=== PATIENT | female | born 1950 | race Caucasian/White ===

== ENCOUNTER → 2018-06-16 | Outpatient (CLI) | payer OTHER ==
[~2018-06-16] VITALS: Ht 165.1 cm; Wt 99.8 kg
[~2018-06-16] MED LIST: ALEVE220 M2 PO; ALLERGY RELIE15.8 ML BOTH NARES; AUGMENTIN875 MG PO; CHOLESTEROL PO; CYANOCOBALAM1000 MCG PO; GLUCOSAMINE CH1 EAC4 PO; GLUCOTROL10 MG PO; LEVOTHYROXINE SODIUM PO; LIPITOR80 MG PO; LISINOPRIL PO; LO-DOSE ASPIRIN81 M1 PO; METFORMIN HCL1000 MG PO; NEXIUM40 MG PO; PATADAY2.5 ML BOTH EYES; PRILOSEC40 MG PO; SYNTHROID125 MCG PO; ZESTRIL20 MG PO
== END | disposition home or self-care (01) ==
LOC: AMB 09:30
PROVIDERS: Internal Medicine Gastroenterology
PROC: 0DJD8ZZ Inspection of Lower Intestinal Tract, Via Natural or Artificial Opening Endoscopic (ICD-10-PCS; principal; 2018-06-16)
DX: Z12.11 Encounter for screening for malignant neoplasm of colon (principal); Z86.010 Personal history of colon polyps; K58.0 Irritable bowel syndrome with diarrhea; Z80.0 Family history of malignant neoplasm of digestive organs; I10 Essential (primary) hypertension; K76.0 Fatty (change of) liver, not elsewhere classified; K21.9 Gastro-esophageal reflux disease without esophagitis; M19.90 Unspecified osteoarthritis, unspecified site; E78.00 Pure hypercholesterolemia, unspecified; E66.9 Obesity, unspecified; G47.33 Obstructive sleep apnea (adult) (pediatric); E11.9 Type 2 diabetes mellitus without complications; Z79.84 Long term (current) use of oral hypoglycemic drugs; Z82.3 Family history of stroke; Z88.1 Allergy status to other antibiotic agents; Z88.8 Allergy status to other drugs, medicaments and biological substances
CPT/HCPCS: 82948; 93005